=== PATIENT | female | born 1980 | race Caucasian/White ===

== ENCOUNTER 2019-09-21 14:56 | Emergency (ER) | payer MEDICAID ==
[~2019-09-21] VITALS: Ht 162.6 cm; Wt 88.9 kg
[2019-09-21 15:02] VITALS: Ht 162.6 cm; Wt 88.9 kg
[2019-09-21 15:59] LABS: BASOPHIL % 0.5 % (0-2); PLATELET COUNT 353 x10^3mcL (130-400)
[2019-09-21 16:00] LABS: RED CELL DISTRIBUTION WIDTH 18.4 % (11.5-14.5)
[2019-09-21 16:02] LABS: CALCIUM 8.7 mg/dL (8.5-10.1); CARBON DIOXIDE 27.8 mmol/L (21-32); CHLORIDE SERUM 105 mmol/L (98-107); CREATININE SERUM 0.7 mg/dL (0.6-1.0); GFR1 > 60 mL/min; GLUCOSE SERUM 101 mg/dL (74-106); POTASSIUM SERUM 3.4 mmol/L (3.5-5.1); SODIUM SERUM 141 mmol/L (136-145)
[2019-09-21 16:05] LABS: UA SPECIFIC GRAVITY 1.015 (1.005-1.035); microscopic required? YES; urine erythrocyte TRACE (NEGATIVE)
[2019-09-21 16:07] LABS: ALKALINE PHOSPHATASE 84 U/L (46-116); ALT/SGPT 14 U/L (14-59); AST/SGOT 11 U/L (15-37); BILIRUBIN TOTAL 0.36 mg/dL (0.20-1.00); CHOLESTEROL 160 mg/dL (<200); TOTAL PROTEIN, SERUM 6.9 g/dL (6.4-8.2)
[2019-09-21 16:10] LABS: ALBUMIN 3.3 g/dL (3.4-5.0)
[2019-09-21 16:49] VITALS: BP 112/53
== END 2019-09-21 16:49 | disposition home or self-care (01) ==
LOC: ED 14:56
PROVIDERS: Specialist
DX: R20.2 Paresthesia of skin (principal)
CPT/HCPCS: 36415; G0480